=== PATIENT | male | born 1990 | race Caucasian/White ===

== ENCOUNTER 2017-03-13 19:40 | Inpatient (IN) | payer MEDICAID ==
--- NOTE | 2017-03-13 20:05 | C.PDOC ---
History Of Present Illness Patient presents to the ED seeking detox from heroin. Patient notes last use was last night melissa denies fever, chills, nausea, vomiting, suicidal, or homicidal ideations. Time Seen by Provider: 03/13/17 20:04 History Per: Patient History/Exam Limitations: no limitations Suicide/Self Injury Attempted (Context): None Modifying Factor(s): Narcotics Severity: None Pain Scale Rating Of: 0 Associated Symptoms: denies: Suicidal Thoughts, Suicidal Plan Involuntary Hold By: None Recent travel outside of the [place]: No Past Medical History Reviewed: Historical Data, Nursing Documentation, Vital Signs Vital Signs: Last Vital Signs Temp 98.4 F 03/13/17 20:11 Pulse 70 03/13/17 20:11 Resp 18 03/13/17 20:11 BP 116/67 03/13/17 20:11 Pulse Ox 97 03/13/17 20:11 Family History: States: Unknown Family Hx Review Of Systems Constitutional: Negative for: Fever, Chills Cardiovascular: Negative for: Chest Pain, Palpitations Respiratory: Negative for: Cough, Shortness of Breath Gastrointestinal: Negative for: Nausea, Vomiting, Abdominal Pain, Diarrhea Skin: Negative for: Rash Neurological: Negative for: Weakness Psych: Negative for: Anxiety Physical Exam - Physical Exam Appears: Non-toxic, No Acute Distress Skin: Warm, Dry Head: Atraumatic Eye(s): bilateral: Normal Inspection Oral Mucosa: Moist Neck: Supple Chest: Symmetrical, No Deformity Cardiovascular: Rhythm Regular, No Murmur Respiratory: No Rales, No Rhonchi, No Wheezing Gastrointestinal/Abdominal: Soft, No Tenderness, No Distention, No Guarding, No Rebound Back: No CVA Tenderness Extremity: Normal ROM, No Tenderness Extremity: Bilateral: Atraumatic Neurological/Psych: Oriented x3 Gait: Steady ED Course And Treatment - Laboratory Results Result Diagrams: 03/13/17 20:31 03/13/17 20:31 Progress Note: Labs were ordered. Disposition Discussed With : Sid Byers Comment: accepted the pt on his service and took over the care at 10:11 PM Doctor Will See Patient In The: Hospital Counseled Patient/Family Regarding: Studies Performed, Diagnosis - Disposition Disposition: HOSPITALIZED Disposition Time: 20:04 Condition: FAIR - POA Present On Arrival: None - Clinical Impression Clinical Impression: Drug abuse, Drug dependence - Scribe Statement The provider has reviewed the documentation as recorded by the Scribe Carrol Lima All medical record entries made by the Scribe were at my direction and personally dictated by me. I have reviewed the chart and agree that the record accurately reflects my personal performance of the history, physical exam, medical decision making, and the department course for this patient. I have also personally directed, reviewed, and agree with the discharge instructions and disposition. Decision To Admit - Pt Status Changed To: Hospital Disposition Of: Inpatient - Admit Certification Admit to Inpatient:: After my assessment, the patient will require hospitalization for at least two midnights. This is because of the severity of symptoms shown, intensity of services needed, and/or the medical risk in this patient being treated as an outpatient. - InPatient: Physician Admission Certification: I certify that this patient requires 2 or more midnights of care for the following reason:: After my assessment, the patient will require hospitalization for at least two midnights. This is because of the severity of symptoms shown, intensity of services needed, and/or the medical risk in this patient being treated as an outpatient. - . Bed Request Type: Detox Admitting Physician: Sid Byers Patient Diagnosis: Drug abuse, Drug dependence
[2017-03-13 20:10] VITALS: BMI 30.8
[2017-03-13 20:39] LABS: BASO # 0.1 K/uL (0.0-0.2); BASO % 1.1 % (0.0-2.0); EOS # 0.3 K/uL (0.0-0.7); HEMATOCRIT 42.4 % (35.0-51.0); LYMPH # 2.6 K/uL (1.0-4.3); LYMPH % 33.8 % (20.0-40.0); MEAN CELL VOLUME 83.8 fL (80.0-94.0); MEAN CORPUSCULAR HEMOGLOBIN 27.6 pg (27.0-31.0); MEAN CORPUSCULAR HGB CONC 32.9 g/dL (33.0-37.0); MEAN PLATELET VOLUME 8.9 fL (7.2-11.7); MONO # 0.5 K/uL (0.0-0.8); MONO % 6.2 % (0.0-10.0); NRBC % 0.1 % (0.0-2.0); RED CELL DISTRIBUTION WIDTH 14.4 % (11.5-14.5); WHITE BLOOD COUNT 7.6 K/uL (4.8-10.8)
[2017-03-13 20:43] LABS: CHLORIDE 106 mmol/L (98-107); POTASSIUM 4.1 mmol/L (3.6-5.2); SODIUM 144 mmol/L (132-148)
[2017-03-13 20:45] LABS: BILIRUBIN,TOTAL 0.5 mg/dL (0.2-1.3); GFR AFRICAN-AMERICAN > 60
[2017-03-13 20:46] LABS: ALB/GLOB RATIO 1.3 (1.0-2.1); ALKALINE PHOSPHATASE 48 U/L (38-126); ALT/SGPT 31 U/L (21-72); AST/SGOT 26 U/L (17-59); BLOOD UREA NITROGEN 15 mg/dL (9-20); CALCIUM 9.2 mg/dl (8.6-10.4); CARBON DIOXIDE 25 mmol/L (22-30); GLUCOSE,RANDOM 87 mg/dL (75-110); TOTAL PROTEIN 8.1 g/dL (6.3-8.3)
[2017-03-13 20:47] LABS: ALCOHOL SERUM < 10 mg/dl (0-10)
[2017-03-13 21:25] LABS: RBC URINE < 1 /hpf (0-3); URINE BILIRUBIN NEGATIVE (NEGATIVE); URINE BLOOD NEGATIVE (NEGATIVE); URINE COLOR Yellow (YELLOW); URINE GLUCOSE (UA) NORMAL (Normal); URINE KETONE NEGATIVE (NEGATIVE); URINE LEUKOCYTE ESTERASE NEG Leu/uL (Negative); URINE PROTEIN NEGATIVE (NEGATIVE); URINE UROBILINOGEN NORMAL mg/dL (0.2-1.0); WBC URINE < 1 /hpf (0-5)
[2017-03-13] MEDS ORDERED: Aluminum Hydroxide/Magnesium Hydroxide Susp (30 mL) PO PRN (22:31)
--- NOTE | 2017-03-13 22:34 | PCM.BM ---
<Alessandra Zayas - Last Filed: 03/13/17 22:32> Treatment Plan Problems - Problems identified on initial assessmt Potential for opiate withdrawal Date Initiated: 03/13/17 Time Initiated: 22:33 Assessment reference: NA Status: Active Priority: 1 Treatment assets and liabiliti Patient Assests: ADL independent, negotiates basic needs, cognitively intact Patient Liabilities: substance abuse - Milieu Protocol Maintain good personal hygiene: daily Encourage regular showers, daily Remind patient to perform daily oral care, daily Assist patient to perform ADL's Maintain personal safety: every shift Educate patient to report safety concerns to staff, every shift Monitor environment for contraband/sharps Medication safety: Monitor for expected outcome, potential side effects: every shift, Assess barriers to learning: every shift, Assess readiness for medication education: every shift <Sid Byers - Last Filed: 03/15/17 13:16> - Diagnosis (1) Opiate dependence, continuous Status: Acute Interventions: 03/15/17 13:16 Medication Motivation intensity for abstinence Cognitive behavior therapy <Cyndie Yuen - Last Filed: 03/16/17 15:45> Family Contact Family involvement: Family/SO is involved Family contact: Patient declines to allow family contact at present - Goals for Treatment Patient goals for treatment: Complete detox and transition to [facility] for outpatient co-occurring tx. Discharge/Continuing Care - Education Needs Education Needs: Patient Medication, Patient Diagnosis/Disease Process, Patient Coping Skills, Patient Anger Management skills, Patient Placement options, Patient Community resources - Discharge Discharge Criteria: No longer exhibiting s/s of withdrawal, Reduction of target symptoms Discharge to:: Home - Treatment Team Participation Patient/Family/SO Statement: 03/16/17 15:45 "I wanna go across the street" Discussed with Family/SO: No Was Patient/Family/SO present at Treatment Team Meeting: Yes
[2017-03-14] MEDS ORDERED: Buprenorphine Hydrochloride 2 mg SL ONE ×3 (00:08→16:15)
[2017-03-14] MEDS ORDERED: Albuterol HFA 90 mcg/actuation (8 g) INH PRN (02:52)
[2017-03-14] MEDS ORDERED: Buprenorphine Hydrochloride 2 mg SL SCH ×3 (16:00→16:30)
--- NOTE | 2017-03-14 16:46 | PCM.PSYCH ---
Initial Psychiatric Evaluation - Initial Psychiatric Evaluation Type of Admission: Voluntary Legal Status: Capacity Chief Complaint (in patient's own words): I need treatment for my heroine and marijuana use History of Present Illness and Precipitating Events: Patient is a 27 years old, single, currently unemployed, male with no previous psychiatric history but history of heroine and cannabis use was admitted for the treatment of withdrawing from the substances. Started using heroin at the age of 12 years, increased gradually to 5-10 bags daily, snorting. Last use reported 2 days ago. Longest period of abstinence was 29 months from 2013 2 2015, patient was incarcerated. History of one detox at [facility] but no rehabilitation. Cannabis started at the age of 12 years, has variable use of cannabis, from 1 joint to multiple joints daily. Last use reported 2 days ago. Denied use of cocaine and alcohol. Smokes one pack of cigarettes daily and is requesting for nicotine patch. 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 Patient was arrested multiple times for assault, possession of weapon and other charges. His recent admission was from 2013 2 2015 429 months for robbery. Patient was born in [place], has high school graduation, not working. Lives with girlfriend who is also supporting him. Has no children. Height is 5 feet 10 inches and weight is 215 pounds. Current Medications: Active Medications Generic Name Dose Route Start Last Admin Trade Name Freq PRN Reason Stop Dose Admin Al Hydrox/Mg Hydrox/Simethicone 30 ml 03/13/17 22:31 Maalox 30 Ml PO Q8 PRN Indigestion / Heartburn Albuterol 1 puff 03/14/17 02:52 Ventolin Hfa 90 Mcg/Actuation (8 G) INH RQ4 PRN Shortness of Breath Clonidine HCl 0.1 mg 03/13/17 22:31 03/14/17 09:42 Catapres PO 0.1 mg Q8 PRN Administration opiate withdrawal Dicyclomine HCl 10 mg 03/13/17 22:31 Bentyl PO Q6 PRN abdominal spasm Hydroxyzine HCl 25 mg 03/13/17 22:30 03/14/17 01:11 Atarax PO 25 mg Q6 PRN Administration Anxiety Loperamide HCl 2 mg 03/14/17 16:39 Imodium PO Q8 PRN Diarrhea Nicotine 1 patch 03/14/17 10:00 03/14/17 09:41 Nicoderm Cq TD 1 patch DAILY MICHELET Administration Ondansetron HCl 4 mg 03/14/17 16:39 Zofran Tab PO Q8 PRN Nausea/Vomiting Trazodone HCl 50 mg 03/13/17 22:30 Desyrel PO HS PRN Insomnia Past Psychiatric History - Past Psychiatric History Previous Treatment History: None History of Abuse: None reported History of ETOH/Drug Use: See HPI History of Family Illness: History of heroin use in his father Pertinent Medical Hx (Current Medical&Sleep Prob, Allergies): Allergies Allergy/AdvReac Type Severity Reaction Status Date / Time No Known Allergies Allergy Verified 03/13/17 20:14 No Known Home Med 03/13/17 Asthma Review of Systems - Psychiatric Psychiatric: Depression, Hopelessness Mental Status Examination - Personal Presentation Personal Presentation: Looks stated age - Affect Affect: Other (Appropriate) - Motor Activity Motor Activity: Calm - Reliability in Providing Information Reliability in Providing Information: Fair - Speech Speech: Organized - Mood Mood: Depressed - Formal Thought Process Formal Thought Process: No Impairment - Hallucinations/Delusions Hallucinations: Other Delusions: Other (None reported) - Obsessions/Compulsions Obsessions: None (none reported) Compulsions: None - Cognitive Functions Orientation: Person, Place, Situation, Time Sensorium: Alert Attention/Concentration: Attentive Abstract Thinking: [place] Estimate of Intelligence: Average Judgement: Intact, as evidence by: Insight regarding need for hospitalization Memory: Recent intact, as evidence by: 3/3 object recall, Remote intact, as evidenced by: Ability to recall historical events - Risk Risk: Withdrawal, Diminished functioning - Strength & Assets Inventory Strength & Assets Inventory: Family support, Cooperative - Limitations Limitations: Other DSM 5 DX - DSM 5 DSM 5 Diagnosis: Opiate use disorder severe Cannabis use disorder severe Asthma - Recommended/Plan of Treatment Treatment Recommendations and Plan of Treatment: Patient education Supportive therapy Continue treatment as before Projected ELOS: 4-5 days - Smoking Cessation Smoking Cessation Initiated: Yes
--- NOTE | 2017-03-15 13:20 | PCM.PYCHPN ---
Psychiatric Progress Note - Psychiatric Progress Note Patient seen today, length of contact: 15 minutes Patient Chief Complaint: I'm feeling better. Can I go home today. Problems Identified/Issues Discussed: Patient seen. Chart reviewed. Case discussed with the staff. Issues related to illness and treatment were discussed with the patient. Reported compliant with treatment with no adverse affects. Tolerating treatment very well. Reported feeling much better with few withdrawal symptoms. The time of evaluation, patient was awake alert oriented 3, had no delusions, no auditory or visual hallucinations, no suicidal ideations or homicidal ideations. Medical Problems: None reported Diagnostic Results: Reviewed DSM 5 Symptoms Update: Improving with treatment Medication Change: No Medical Record Reviewed: Yes Mental Status Examination - Cognitive Function Orientation: Person, Place, Situation, Time Memory: Intact Attention: WNL Concentration: WNL Association: WNL Fund of Knowledge: [facility] Decription of patient's judgement and insights: Fair - Mood Mood: Depressed (Much less than before) - Affect Affect: Other (Appropriate) - Speech Speech: Appropriate - Formal Thought Process Formal Thought Process: No Impairment Psychotic Thoughts and Behaviors: None - Suicidal Ideation Suicidal Ideation: No - Homicidal Ideation Homicidal Ideation: No Goal/Treatment Plan - Goal/Treatment Plan Need for Continued Stay: Remain at risks for inpatient hospitalization, Discharge may exacerbated symptoms, Severe functional impairment Progress Toward Problem(s) and Goals/Treatment Plan: Patient education Supportive therapy Continue treatment as before Estimated Date of D/C: 03/17/17 - Smoking Cessation Smoking Cessation Initiated: Yes
[2017-03-15] MEDS ORDERED: Buprenorphine Hydrochloride 2 mg SL ONE (15:45)
[2017-03-15 21:04] VITALS: RESP 18
[2017-03-16] MEDS ORDERED: Buprenorphine Hydrochloride 2 mg SL SCH (10:00)
[2017-03-16] MEDS ORDERED: Buprenorphine Hydrochloride 2 mg SL ONE (10:00)
[2017-03-16 12:01] VITALS: BP 126/81; PULSE 71; TEMP 98; O2SAT 98
--- NOTE | 2017-03-16 16:03 | PCM.PYCHDC ---
Mental Status Examination - Mental Status Examination Orientation: Person, Place, Situation, Time Memory: Intact Mood: Neutral Affect: Other (Appropriate) Speech: Appropriate Attention: WNL Concentration: WNL Association: WNL Fund of Knowledge: WNL Formal Thought Process: No Impairment Suicidal Ideation: No Current Homicidal Ideation?: No Discharge Summary - Discharge Note Reason for Hospitalization: Pt admitted for desire to stop use of heroin and cannabis and for heroin withdrawal Psychiatric History (includes Medical, Family, Personal Hx): Denies psychiatric history Consultations:: List each consultation separately and include: 1. Reason for request. 2. Findings. 3. Follow-up Summary of Hospital Course include:: 1. Description of specific treatment plan utilized for patients during their course of treatmen. 2. Summarize the time- course for resolution of acute symptoms and/or regressed behaviors. 3. Describe issues identified and worked on during hospitalization. 4. Describe medication utilized. 5. Describe medical problems identified and treated. 6. Reassessment of suicide risk Summary of Hospital Course: Pt was admitted and started on treatment with psychotherapy, support, psychoeducation and medications. OK and CBT used. Pt attended groups and activities as well as milieu therapy. All the risks and benefits of medications were discussed and pt understood and agreed. Pt improved with the treatment provided. Pt currently reports to feel well and denies symptoms of withdrawal. After care discussed. Will work with SW. Possibly will follow up with [facility]. Is interested in learning more about Suboxone and Subutex therapy. - Final Diagnosis (DSM 5) Condition upon Discharge: GOOD DSM 5: Opioid use disorder, severe Opioid withdrawal Cannabis use disorder, severe Disposition: HOME/ ROUTINE Follow-up Treatment Plan: Continue below medications after discharge. Follow after care as discussed. Use relapse prevention skills. Return to ER or call 911 if suicidal, homicidal or symptoms relapse. Stay away from stress, alcohol and drugs. See primary doctor once a year. Prescriptions/Medication Reconciliation: Albuterol HFA [Ventolin HFA 90 mcg/actuation (8 g)] 1 puff INH RQ4 PRN #1 inhaler PRN Reason: Shortness Of Breath traZODone [Desyrel] 100 mg PO HS PRN #30 tab PRN Reason: Insomnia - Smoking Cessation Smoking Cessation Medication prescribed: No - Antipsychotic Medications Pt discharged on 2 or more routine antipsychotic medications: No
== END 2017-03-16 13:20 | disposition home or self-care (01) | DRG 745 ==
LOC: C.ER 19:40 → C.7D 22:08
PROC: HZ2ZZZZ Detoxification Services for Substance Abuse Treatment (ICD-10-PCS; principal; 2017-03-13)
PROC: HZ59ZZZ Individual Psychotherapy for Substance Abuse Treatment, Supportive (ICD-10-PCS; 2017-03-13)
PROC: HZ46ZZZ Group Counseling for Substance Abuse Treatment, Psychoeducation (ICD-10-PCS; 2017-03-13)
DX: F11.23 Opioid dependence with withdrawal (principal); F12.20 Cannabis dependence, uncomplicated; F17.210 Nicotine dependence, cigarettes, uncomplicated; J45.909 Unspecified asthma, uncomplicated